=== PATIENT | male | born 1980 | race Caucasian/White ===

== ENCOUNTER 2019-03-17 03:00 | Emergency (ER) | payer MEDICAID ==
[~2019-03-17] VITALS: Ht 170.2 cm; Wt 73.0 kg
[2019-03-17 03:31] VITALS: BP 149/92
[2019-03-17] MEDS ORDERED: LORAZEPAM 1MG TABLET PO ONE (06:30)
== END 2019-03-17 07:38 | disposition left against medical advice (07) ==
LOC: ER 03:00
DX: F41.9 Anxiety disorder, unspecified (principal); F12.10 Cannabis abuse, uncomplicated; F17.200 Nicotine dependence, unspecified, uncomplicated
CPT/HCPCS: 99284; Z7610